=== PATIENT | female | born 1995 ===

== ENCOUNTER 2022-01-30 05:21 | Inpatient (IN) ==
[2022-01-30] MEDS ORDERED: FAMOTIDINE 20 MG/2 ML VIAL IV ONE (05:29)
[2022-01-30] MEDS ORDERED: TRANEXAMIC ACID 1,000 MG in SODIUM CHLORIDE 0.9% 100 ML IV PRN (05:29)
[2022-01-30] MEDS ORDERED: CARBOPROST TROMETHAMINE 250 MCG/ML AMP IM PRN (05:29)
[2022-01-30] MEDS ORDERED: miSOPROStoL 200 MCG TABLET RECTAL PRN (05:29)
[2022-01-30] MEDS ORDERED: CLINDAMYCIN INJ 900 MG/50 ML PREMIX IV ONE (05:29)
[2022-01-30] MEDS ORDERED: CITRIC ACID/SODIUM CITRATE 30 ML UDCUP PO ONE (05:29)
[2022-01-30] MEDS ORDERED: OXYTOCIN/LR 20 UNIT/1,000 ML BAG IV ONE ×3 (05:29→08:35)
[2022-01-30] MEDS ORDERED: METHYLERGONOVINE 0.2 MG/1 ML AMP IM PRN (05:29)
[2022-01-30] MEDS ORDERED: LACTATED RINGERS 1,000 ML IV SCH ×2 (05:30→09:00)
[2022-01-30 06:02] LABS: Basophils # 0.1 10*3/uL (0.0-0.2); Basophils % 0.4 % (0.0-0.8); Eosinophils # 0.1 10*3/uL (0.0-0.87); Eosinophils % 0.9 % (0.00-10.9); Hematocrit 38.4 VOL% (35.7-47.0); Hemoglobin 12.8 GM/DL (12.0-16.0); Immature Granulocytes % 1.1 %; Immature Granulocytes Absolute 0.13 #; Lymphocytes % 17.5 % (21.3-54.2); Mean Corpuscular HGB Conc 33.3 GM/DL (32-36); Mean Corpuscular Volume 90.6 FL (87-102); Mean Platelet Volume 10.9 FL (9.6-12.0); Monocytes # 0.9 10*3/uL (0.11-0.8); Neutrophils % 72.1 % (38.7-73.9); Platelet Count 314 T/CUMM (130-400); Red Blood Count 4.24 MC/CUMM (3.8-5.5); Red Cell Distribution Width 14.1 % (9.3-17.3); White Blood Count 11.7 T/CUMM (4-12)
[2022-01-30] MEDS ORDERED: BUPIVACAINE SPINAL 0.75% 2 ML AMP SPINAL ONE (07:08)
[2022-01-30] MEDS ORDERED: ONDANSETRON 4 MG/2 ML VIAL ONE (07:08)
[2022-01-30] MEDS ORDERED: buprenorphine HCL 0.3 MG/ML VIAL ONE (07:09)
[2022-01-30] MEDS ORDERED: miSOPROStoL 200 MCG TABLET ONE (07:38)
[2022-01-30] MEDS ORDERED: CARBOPROST TROMETHAMINE 250 MCG/ML AMP IM ONE (07:39)
[2022-01-30] MEDS ORDERED: METHYLERGONOVINE 0.2 MG/1 ML AMP ONE (07:39)
[2022-01-30] MEDS ORDERED: PHENYLEPHRINE 1 MG/10 ML SYRINGE IV ONE (07:47)
[2022-01-30] MEDS ORDERED: ePHEDrine 50 MG/ML VIAL ONE (07:54)
[2022-01-30 08:18] LABS: Cord Venous Blood HCO3 24.4 MMOL/L; Cord Venous Blood PCO2 45.8 MMHG; Cord Venous Blood PO2 32.6
[2022-01-30 08:34] LABS: Mucus,Urine Occasional /LPF (Occasional); RBC,Urine <1 /HPF (0-4); Squamous Epithelial Cell,Urine Occasional /HPF (0-10)
[2022-01-30 08:35] LABS: Bilirubin,Urine Negative (Negative); Blood, Urine Negative (Negative); Glucose,Urine (UA) Negative (Negative); Ketones,Urine Negative (Negative); Nitrite,Urine Negative (Negative); Protein,Urine Negative (Negative); Urine Appearance Clear (Clear); Urine Color Yellow (Yellow); Urine Urobilinogen 0.2 eU/dL (<2.0)
[2022-01-30] MEDS ORDERED: SIMETHICONE CHEW 80 MG TABLET PO PRN (08:35)
[2022-01-30] MEDS ORDERED: ONDANSETRON 4 MG/2 ML VIAL IV PRN (08:35)
[2022-01-30] MEDS ORDERED: ACETAMINOPHEN 325 MG TABLET PO PRN (08:35)
[2022-01-30] MEDS ORDERED: RHO(D) IMMUNE GLOBULIN 300 MCG SYRINGE IM ONE (08:35)
[2022-01-30] MEDS ORDERED: IBUPROFEN 800 MG TABLET PO PRN (08:35)
[2022-01-30] MEDS: ACETAMINOPHEN 500 MG TABLET PO SCH ×3 (10:01→22:25)
[2022-01-30] MEDS: KETOROLAC 30 MG/1 ML VIAL IV SCH ×3 (10:01→22:24)
[2022-01-30] MEDS: DOCUSATE SODIUM 100 MG CAPSULE PO SCH (21:21)
[2022-01-31] MEDS: ACETAMINOPHEN 500 MG TABLET PO SCH (04:09)
[2022-01-31] MEDS: KETOROLAC 30 MG/1 ML VIAL IV SCH (04:11)
[2022-01-31 05:15] LABS: Basophils % 0.3 % (0.0-0.8); Eosinophils # 0.1 10*3/uL (0.0-0.87); Eosinophils % 0.9 % (0.00-10.9); Hematocrit 30.9 VOL% (35.7-47.0); Hemoglobin 10.1 GM/DL (12.0-16.0); Immature Granulocytes Absolute 0.12 #; Lymphocytes # 1.5 10*3/uL (1.4-4.0); Lymphocytes % 13.1 % (21.3-54.2); Mean Corpuscular HGB Conc 32.7 GM/DL (32-36); Mean Corpuscular Volume 92.5 FL (87-102); Monocytes # 1.1 10*3/uL (0.11-0.8); Monocytes % 9.3 % (1.7-12.7); Neutrophils % 75.4 % (38.7-73.9); Platelet Count 211 T/CUMM (130-400); Red Blood Count 3.34 MC/CUMM (3.8-5.5); Red Cell Distribution Width 14.5 % (9.3-17.3); White Blood Count 11.7 T/CUMM (4-12)
[2022-01-31] MEDS: MULTIVITAMIN (PRENATAL) TABLET PO SCH (09:35)
[2022-01-31] MEDS: MAGNESIUM HYDROXIDE SUSP 30 ML UDCUP PO PRN (09:36)
[2022-01-31] MEDS: DOCUSATE SODIUM 100 MG CAPSULE PO SCH ×2 (09:36→20:49)
[2022-01-31] MEDS ORDERED: IBUPROFEN 800 MG TABLET PO PRN (17:02)
[2022-01-31] MEDS: oxyCODONE/ACETAMINOPHEN 5-325 MG TABLET PO PRN (17:57)
[2022-02-01] MEDS: oxyCODONE/ACETAMINOPHEN 5-325 MG TABLET PO PRN (01:25)
[2022-02-01 07:12] VITALS: BP 118/57
[2022-02-01] MEDS: DOCUSATE SODIUM 100 MG CAPSULE PO SCH (08:08)
[2022-02-01] MEDS: MAGNESIUM HYDROXIDE SUSP 30 ML UDCUP PO PRN (08:08)
[2022-02-01] MEDS: MULTIVITAMIN (PRENATAL) TABLET PO SCH (08:08)
== END 2022-02-01 11:58 | disposition home or self-care (01) | DRG 788 ==
LOC: N.LD 05:21 → N.OB 11:35
PROVIDERS: ADMIT Obstetrics & Gynecology; ATTEND Obstetrics & Gynecology
PROC: LDCSECT (ICD-10-PCS; 2022-01-30 07:30)